=== PATIENT | female | born 1970 | race Caucasian/White ===

== ENCOUNTER 2016-12-05 11:47 | Emergency (ER) | payer OTHER ==
[2016-12-05 11:58] VITALS: BMI 21.9
[2016-12-05 12:00] VITALS: BP 111/77; PULSE 94; RESP 20; TEMP 98.4; O2SAT 98
[2016-12-05] MEDS ORDERED: Epinephrine /Lidocaine HCL 1:100,000/2% 30 ml INJ STA (12:31)
--- NOTE | 2016-12-05 12:51 | C.PDOC ---
History Of Present Illness 46 y/o female presents to ED with complains of abscess to left axilla for several days. Pain is a 8/10 increased with movement and is non radiating. Patient denies associated fever, chills, n/v/d or any other complaints at this time. Time Seen by Provider: 12/05/16 12:12 Chief Complaint (Nursing): Abnormal Skin Integrity History Per: Patient History/Exam Limitations: no limitations Onset/Duration Of Symptoms: Days Current Symptoms Are (Timing): Still Present Quality Of Symptoms: Painful Past Medical History Reviewed: Historical Data, Nursing Documentation, Vital Signs Vital Signs: Last Vital Signs Temp 98.4 F 12/05/16 11:58 Pulse 94 H 12/05/16 11:58 Resp 20 12/05/16 11:58 BP 111/77 12/05/16 11:58 Pulse Ox 98 12/05/16 12:51 Surgical History: Appendectomy Family History: States: Unknown Family Hx - Social History Hx Alcohol Use: No Hx Substance Use: No Review Of Systems Except As Marked, All Systems Reviewed And Found Negative. Constitutional: Negative for: Fever, Chills Gastrointestinal: Negative for: Nausea, Vomiting, Diarrhea Skin: Negative for: Rash Physical Exam - Physical Exam Appears: Non-toxic, No Acute Distress Skin: Normal Color, Warm Head: Atraumatic, Normacephalic Lymphatic: Other (Raised lesion to left axilla endurated with small fluctuance in the middle, Erythema and tender to touch) Chest: Symmetrical Gastrointestinal/Abdominal: Soft, No Tenderness, No Guarding, No Rebound Extremity: Normal ROM, Capillary Refill (<2 seconds) Neurological/Psych: Oriented x3, Normal Motor, Normal Sensation, Normal Reflexes ED Course And Treatment O2 Sat by Pulse Oximetry: 98 (RA) Pulse Ox Interpretation: Normal Medical Decision Making Medical Decision Making: Treatment option discussed with patient and agreed for procedure. Area was anesthetized with 2% lidocaine epi 3ml and small incision made, puss was removed Patient is feeling better and tolerated procedure Patient was discharged and asked to clean area and take Motrin for pain. Disposition Counseled Patient/Family Regarding: Studies Performed, Diagnosis - Disposition Disposition: HOME/ ROUTINE Disposition Time: 12:48 Condition: STABLE Instructions: Abscess (ED), Incision and Drainage (ED) Forms: General Discharge Instructions - POA Present On Arrival: None - Clinical Impression Clinical Impression: Abscess - Scribe Statement The provider has reviewed the documentation as recorded by the Scribe Rosy Carr All medical record entries made by the Deborahibe were at my direction and personally dictated by me. I have reviewed the chart and agree that the record accurately reflects my personal performance of the history, physical exam, medical decision making, and the department course for this patient. I have also personally directed, reviewed, and agree with the discharge instructions and disposition.
== END 2016-12-05 13:04 | disposition home or self-care (01) ==
LOC: C.ER 11:47
DX: L02.412 Cutaneous abscess of left axilla (principal)

== ENCOUNTER 2017-01-26 13:12 | Emergency (ER) | payer OTHER ==
[2017-01-26 13:12] VITALS: BMI 21.9
[2017-01-26 13:27] VITALS: TEMP 98.2
[2017-01-26] MEDS ORDERED: DiphenhydrAMINE 50 mg/ml Inj IM STA (13:42)
[2017-01-26] MEDS ORDERED: DiphenhydrAMINE 50 mg/ml Inj ONE (13:47)
--- NOTE | 2017-01-26 14:25 | C.PDOC ---
History Of Present Illness A 46 year old female, who denies any significant past medical history, presents to the emergency department for generalized itchy rash, which began 2 days ago. The patient denies any new contact with skin products, food, materials, or medications, she further denies any difficulties breathing, swelling, voice changes, fevers, or any other complaints at this time. Chief Complaint (Nursing): Allergic Reaction History Per: Patient History/Exam Limitations: no limitations Onset/Duration Of Symptoms: Days (x 2 days) Current Symptoms Are (Timing): Still Present Associated Symptoms: Skin Rash, Itching. denies: Swelling, Trouble Swallowing Severity: None Past Medical History Vital Signs: Last Vital Signs Temp 98.2 F 01/26/17 13:20 Pulse 68 01/26/17 15:08 Resp 18 01/26/17 15:08 BP 103/68 01/26/17 15:08 Pulse Ox 100 01/26/17 15:10 Surgical History: Appendectomy Family History: States: Unknown Family Hx - Social History Hx Alcohol Use: No Hx Substance Use: No Review Of Systems Except As Marked, All Systems Reviewed And Found Negative. Constitutional: Negative for: Fever ENT: Negative for: Mouth Swelling Respiratory: Negative for: Cough, Shortness of Breath, SOB with Excertion, Wheezing Skin: Negative for: Other (swelling ) Physical Exam - Physical Exam Appears: Well, Non-toxic, No Acute Distress Skin: Normal Color, Warm, Dry Head: Atraumatic, Normacephalic Eye(s): bilateral: Normal Inspection, PERRL, EOMI Nose: Normal Oral Mucosa: Moist Tongue: Normal Appearing, No Swelling Lips: Normal Appearing, No Swelling Teeth: Normal Dentition Gingiva: Normal Appearing Throat: Normal Neck: Normal Cardiovascular: Rhythm Regular Respiratory: Normal Breath Sounds Gastrointestinal/Abdominal: Normal Exam Back: Normal Inspection Extremity: Normal ROM, No Swelling ED Course And Treatment O2 Sat by Pulse Oximetry: 100 Medical Decision Making Medical Decision Making: Treatment Plan: -- Benadryl, Pepcid, Prednisone Progress Notes: On re-evaluation patient feels better, normal voice, no problems breathing, less pruritic. Patient will be c/ home with PMD/clinic follow up. Disposition - Disposition Referrals: [facility] at [facility] [Outside] Disposition: HOME/ ROUTINE Disposition Time: 15:08 Condition: IMPROVED Additional Instructions: Follow up in Clinic within 1-2 days. Return to Ed if feel worse. Prescriptions: DiphenhydrAMINE [Benadryl] 25 mg PO .Q4-6 H #30 cap Famotidine [Pepcid] 20 mg PO BID #20 tab predniSONE [predniSONE Tab] 2 tab PO DAILY #8 tab Instructions: Urticaria (ED) Forms: [facility] (Macedonian) Print Language: VENEZUELAN - Clinical Impression Clinical Impression: Urticaria - Scribe Statement The provider has reviewed the documentation as recorded by the Scribe Humera Milan All medical record entries made by the Deborahibe were at my direction and personally dictated by me. I have reviewed the chart and agree that the record accurately reflects my personal performance of the history, physical exam, medical decision making, and the department course for this patient. I have also personally directed, reviewed, and agree with the discharge instructions and disposition.
[2017-01-26 15:09] VITALS: BP 103/68; PULSE 68; RESP 18
[2017-01-26 15:10] VITALS: O2SAT 100
== END 2017-01-26 15:27 | disposition home or self-care (01) ==
LOC: C.ER 13:12
DX: L50.9 Urticaria, unspecified (principal)
CPT/HCPCS: 96372; 99284; J1200

== ENCOUNTER 2018-06-04 20:59 | Emergency (ER) | payer SELFPAY ==
[2018-06-04 20:59] VITALS: BMI 27.0
[2018-06-04 21:09] VITALS: BP 152/86; PULSE 66; RESP 20; TEMP 98.1; O2SAT 100
--- NOTE | 2018-06-04 22:11 | C.PDOC ---
History Of Present Illness 47 year old female presents to the ER for evaluation of right eye redness since yesterday. Patient states she has pain to the lower right eyelid and thinks she might have a stye. She also reports having a mild right sided headache and notes she has been unable to sleep, she requests to know if the symptoms are related. Patient does not use contacts but occasionally wears glasses. Patient has not tried any medication except for tylenol for the headache. Denies neck stiffness, neck pain, or change in vision. Patient presents a secondary complaint of right wrist pain for the past month after doing heavy lifting. She has been wearing a brace to support the wrist. Denies traumatic injury. Chief Complaint (Nursing): ENT Problem History Per: Patient History/Exam Limitations: no limitations Onset/Duration Of Symptoms: Days Current Symptoms Are (Timing): Still Present Preceeding Symptoms: None Associated Symptoms: denies: Blurred Vision, Other (Neck stiffness, Neck pain) Recent travel outside of the [place]: No Past Medical History Reviewed: Historical Data, Nursing Documentation, Vital Signs Vital Signs: Last Vital Signs Temp 98.1 F 06/04/18 21:00 Pulse 66 06/04/18 21:00 Resp 20 06/04/18 21:00 BP 152/86 H 06/04/18 21:00 Pulse Ox 100 06/04/18 21:00 Surgical History: Appendectomy Family History: States: Unknown Family Hx - Social History Hx Alcohol Use: Yes Hx Substance Use: No - Immunization History Hx Tetanus Toxoid Vaccination: No Hx Influenza Vaccination: No Hx Pneumococcal Vaccination: No Review Of Systems Constitutional: Negative for: Fever, Chills Eyes: Positive for: Pain (Right lower eyelid), Redness ENT: Negative for: Mouth Swelling Cardiovascular: Negative for: Chest Pain Respiratory: Negative for: Cough, Shortness of Breath Gastrointestinal: Negative for: Nausea, Vomiting, Diarrhea Genitourinary: Negative for: Dysuria, Hematuria Musculoskeletal: Positive for: Other (Right wrist pain). Negative for: Back Pain Skin: Negative for: Rash Neurological: Negative for: Weakness, Numbness, Dizziness Physical Exam - Physical Exam Appears: Well, Non-toxic, No Acute Distress Skin: Normal Color, Warm, No Rash Head: Atraumatic, Normacephalic Eye(s): bilateral: PERRL, EOMI, right: Other (Conjunctiva injection, excesssive tearing,no obvious stye, no pain with ROM, no photophobia), left: Normal Inspection Ear(s): Bilateral: Normal (No drainage) Nose: Normal Oral Mucosa: Moist Throat: Normal (No swelling or injection), Other (No exudates) Neck: Normal ROM, Supple Chest: Symmetrical Cardiovascular: Rhythm Regular Respiratory: No Accessory Muscle Use, Other (Normal inspiratory effort) Gastrointestinal/Abdominal: Soft, No Distention Back: Other (Ambulating with steady upright gait) Extremity: Normal ROM (x4), Capillary Refill (<2 seconds), Other (Right wrist pain with full extension. No snuffbox tenderness, no tinel sign.) Pulses: Left Radial: Normal, Right Radial: Normal Neurological/Psych: Oriented x3, Normal Speech, Normal Cognition, Normal Cranial Nerves (Grossly intact), Normal Motor, Normal Sensation ED Course And Treatment O2 Sat by Pulse Oximetry: 100 (Room air) Pulse Ox Interpretation: Normal - Other Rad Right wrist x-ray Interpretation: No acute fracture or dislocation Medical Decision Making Medical Decision Making: Right wrist x-ray ordered, results were negative. Patient discharged home with Rx and advised to follow up with primary for wrist pain. Disposition Counseled Patient/Family Regarding: Diagnosis, Need For Followup, Rx Given - Disposition Referrals: Kashif Kline MD [Staff Provider] - Disposition: HOME/ ROUTINE Disposition Time: 22:06 Condition: STABLE Prescriptions: Ofloxacin Ophth 0.3% [Ocuflox Ophth 0.3%] 1 - 2 drop OD QID 5 Days bottle Instructions: Conjunctivitis (Pinkeye) (DC) Forms: [facility] (Irish), General Discharge Instructions Print Language: KYRGYZ - Clinical Impression Clinical Impression: Conjunctivitis - PA / CUSTOMER SERVICES COORDINATOR / Resident Statement MD/DO has reviewed & agrees with the documentation as recorded. - Scribe Statement The provider has reviewed the documentation as recorded by the Scribmikhail Bruno All medical record entries made by the Deborahibmikhail were at my direction and personally dictated by me. I have reviewed the chart and agree that the record accurately reflects my personal performance of the history, physical exam, medical decision making, and the department course for this patient. I have also personally directed, reviewed, and agree with the discharge instructions and disposition.
--- NOTE | 2018-06-05 11:57 | RAD ---
Date of service: 06/04/2018 PROCEDURE: Right Wrist Radiographs. HISTORY: pain COMPARISON: None. FINDINGS: BONES: Normal. No fracture. JOINTS: Normal. No dislocation. SOFT TISSUES: Normal. OTHER FINDINGS: None. IMPRESSION: Normal right wrist radiographs.
== END 2018-06-04 22:23 | disposition home or self-care (01) ==
LOC: C.ER 20:59
DX: H10.9 Unspecified conjunctivitis (principal)

== ENCOUNTER 2018-07-14 17:06 | Emergency (ER) | payer SELFPAY ==
[2018-07-14 17:07] VITALS: BMI 27.0
[2018-07-14 17:15] VITALS: BP 130/84; PULSE 65; RESP 18; TEMP 98; O2SAT 100
[2018-07-14] MEDS ORDERED: DiphenhydrAMINE 50 mg/ml Inj IVP STA (18:06)
[2018-07-14] MEDS ORDERED: Sodium Chloride 0.9% 1,000 ML IV ONE (18:06)
[2018-07-14] MEDS ORDERED: DiphenhydrAMINE 50 mg/ml Inj ONE (18:19)
--- NOTE | 2018-07-14 18:57 | C.PDOC ---
History Of Present Illness 47 year old female presents to ED with complaint of left occipital headache that was more severe earlier today. Patient also complains of fatigue and lightheadedness. She admits to a history of headache, but this is time her headache was more severe than usual. She took Tylenol for her headache with improvement of pain. Patient denies visual changes, facial droop, slurred speech, extremity weakness, sensory changes, gait changes, neck pain or stiffness, and fever. Time Seen by Provider: 07/14/18 17:46 Chief Complaint (Nursing): Headache History Per: Patient History/Exam Limitations: no limitations Onset/Duration Of Symptoms: Hrs Current Symptoms Are (Timing): Better Severity: Mild Quality: "Pain" Associated Symptoms: Other (fatigue, lightheadedness). denies: Extremity Weakness Past Medical History Reviewed: Historical Data, Nursing Documentation, Vital Signs Vital Signs: Last Vital Signs Temp 98 F 07/14/18 17:09 Pulse 65 07/14/18 17:09 Resp 18 07/14/18 17:09 BP 130/84 07/14/18 17:09 Pulse Ox 100 07/14/18 17:09 - Medical History PMH: No Chronic Diseases Surgical History: Appendectomy Family History: States: No Known Family Hx - Social History Hx Alcohol Use: Yes Hx Substance Use: No - Immunization History Hx Tetanus Toxoid Vaccination: No Hx Influenza Vaccination: No Hx Pneumococcal Vaccination: No Review Of Systems Constitutional: Positive for: Other (fatigue). Negative for: Fever, Chills, Weakness Eyes: Negative for: Vision Change Cardiovascular: Positive for: Light Headedness. Negative for: Chest Pain, Palpitations Respiratory: Negative for: Cough, Shortness of Breath Gastrointestinal: Negative for: Nausea, Vomiting, Abdominal Pain, Diarrhea Genitourinary: Negative for: Dysuria, Hematuria Musculoskeletal: Negative for: Neck Pain (stiffness) Neurological: Positive for: Headache, Other (sensory changes). Negative for: Weakness, Numbness, Change in Speech, Confusion, Seizures, Altered Mental Status, Dizziness Physical Exam - Physical Exam Appears: Well, Non-toxic, Other (in mild discomfort) Skin: Normal Color, Warm, Dry Head: Atraumatic, Normacephalic Eye(s): bilateral: Normal Inspection (no nystagmus ), PERRL, EOMI Oral Mucosa: Moist Neck: Normal, Normal ROM, No Midline Cervical Tenderness, No Paracervical Tenderness, No Step Off Deformity, Supple, Other (no meningismus ) Chest: Symmetrical, No Deformity Cardiovascular: Rhythm Regular Respiratory: Normal Breath Sounds, No Rales, No Rhonchi, No Wheezing Gastrointestinal/Abdominal: Normal Exam, Bowel Sounds, Soft, No Tenderness Extremity: No Pedal Edema, No Calf Tenderness Extremity: Bilateral: Atraumatic, Normal Color And Temperature Pulses: Left Dorsalis Pedis: Normal, Right Dorsalis Pedis: Normal Neurological/Psych: Oriented x3, Normal Speech, Normal Cognition, Normal Cranial Nerves, No Cerebellar Signs, Normal Motor, Normal Sensation Gait: Steady ED Course And Treatment O2 Sat by Pulse Oximetry: 100 (RA) Pulse Ox Interpretation: Normal Progress Note: CT head ordered, and patient given IV NS bolus, IV Reglan and IV Benadryl. 18:40- Patient more anxious, possible dystonic rxn after reglan. Benadryl ordered. 19:10- Patient appears to have elopled from ED prior to CT head or reassessment. Disposition - Disposition Disposition: ELOPEMENT - ER ONLY Disposition Time: 19:10 Condition: STABLE Forms: [facility] (Turkish) - Clinical Impression Clinical Impression: Headache, Eloped from emergency department - Scribe Statement The provider has reviewed the documentation as recorded by the Scribe (Karyna Martinez) All medical record entries made by the Scribe were at my direction and personally dictated by me. I have reviewed the chart and agree that the record accurately reflects my personal performance of the history, physical exam, medical decision making, and the department course for this patient. I have also personally directed, reviewed, and agree with the discharge instructions and disposition.
== END 2018-07-14 19:10 | disposition left against medical advice (07) ==
LOC: C.ER 17:06
DX: R51 Headache (principal)
CPT/HCPCS: 81025; 82948; 96374; 99284; J1200; J2765; J7030

== ENCOUNTER 2018-08-10 10:15 | Outpatient (CLI) | payer SELFPAY | END 2018-08-10 10:16 | disposition home or self-care (01) | LOC: C.CTH 10:15 | DX: G44.52 New daily persistent headache (NDPH) (principal) ==

== ENCOUNTER 2018-10-06 22:01 | Emergency (ER) | payer SELFPAY ==
[2018-10-06 22:01] VITALS: BMI 27.0
[2018-10-06 22:19] VITALS: BP 133/84; PULSE 69; RESP 20; TEMP 98.5; O2SAT 100
--- NOTE | 2018-10-06 22:37 | C.PDOC ---
History Of Present Illness 48 year old female with no prior PMHx presents to the ED c/o chest pain. Patient is not able to describe or characterize the pain. Patient also reports "feeling weird" to the left side of her face. Patient denies fever, chills, visual changes, headache, neck pain, SOB, weakness, numbness. Time Seen by Provider: 10/06/18 22:25 Chief Complaint (Nursing): High Blood Pressure History Per: Patient History/Exam Limitations: no limitations Onset/Duration Of Symptoms: Days Current Symptoms Are (Timing): Still Present Associated Symptoms: Chest Pain Recent travel outside of the [place]: No Additional History Per: Patient Past Medical History Reviewed: Historical Data, Nursing Documentation, Vital Signs Vital Signs: Last Vital Signs Temp 98.5 F 10/06/18 22:16 Pulse 69 10/06/18 22:16 Resp 20 10/06/18 22:16 BP 133/84 10/06/18 22:16 Pulse Ox 100 10/06/18 22:16 Primary Care Provider: Darlene Alanis - Medical History PMH: No Chronic Diseases Surgical History: Appendectomy Family History: States: Unknown Family Hx - Social History Hx Alcohol Use: No Hx Substance Use: No - Immunization History Hx Tetanus Toxoid Vaccination: No Hx Influenza Vaccination: No Hx Pneumococcal Vaccination: No Review Of Systems Constitutional: Negative for: Fever, Chills Eyes: Negative for: Vision Change Cardiovascular: Positive for: Chest Pain. Negative for: Palpitations Respiratory: Negative for: Cough, Shortness of Breath Gastrointestinal: Negative for: Nausea, Vomiting, Abdominal Pain Musculoskeletal: Negative for: Neck Pain Skin: Negative for: Rash Neurological: Negative for: Weakness, Numbness, Headache, Dizziness Physical Exam - Physical Exam Appears: Non-toxic, No Acute Distress Skin: Normal Color, Warm, Dry Head: Atraumatic, Normacephalic Eye(s): bilateral: Normal Inspection, PERRL, EOMI Neck: Normal ROM, No Midline Cervical Tenderness, Supple Chest: Symmetrical Cardiovascular: Rhythm Regular Respiratory: Normal Breath Sounds, No Rales, No Rhonchi, No Wheezing Gastrointestinal/Abdominal: Soft, No Tenderness, No Distention Extremity: Normal ROM, No Tenderness, No Swelling Neurological/Psych: Oriented x3, Normal Speech, Normal Cognition, Other (non focal) Gait: Steady ED Course And Treatment ECG: Interpreted By Me, Viewed By Me ECG Rhythm: Sinus Rhythm ECG Interpretation: Normal, No Acute Changes Rate From EC (BPM) O2 Sat by Pulse Oximetry: 100 (ON RA) Pulse Ox Interpretation: Normal Against Medical Advice - AMA Patient Left Against Medical Advice: The patient declines admission to the hospital and wishes to leave the Emergency Department. This action is against my medical advice. This decision was made with informed refusal. The patient was told that admission to the hospital is necessary. Explanation of the reasons why were discussed. The risks of leaving were explained to the patient and include, but are not limited to, worsening of known or currently unknown conditions, permanent disability and from undiagnosed or untreated conditions. The patient has the capacity to make this informed decision and understands my explanation of the current medical problem and risks of leaving. The patient voluntarily accepts these risks and signed an AMA form documenting our conversation. The patient was given the opportunity to ask questions and reconsider. The patient was encouraged to return to the Emergency Department at any time for further care. Medical Decision Making Medical Decision Making: Patient refused any blood work or further testing will sign out AMA. Disposition - Disposition Disposition: AGAINST MEDICAL ADVICE Disposition Time: 22:34 Condition: UNKNOWN Additional Instructions: return to er with worsneing. Instructions: Chest Pain, Headache, Adult (DC) Forms: [employer] (Israeli) Print Language: THAI - Clinical Impression Clinical Impression: Left against medical advice, Chest pain, Headache - Scribe Statement The provider has reviewed the documentation as recorded by the Scribe [place] All medical record entries made by the Scribe were at my direction and personally dictated by me. I have reviewed the chart and agree that the record accurately reflects my personal performance of the history, physical exam, medical decision making, and the department course for this patient. I have also personally directed, reviewed, and agree with the discharge instructions and disposition.
--- NOTE | 2018-10-08 12:18 | CARD ---
APPROVED REPORT Date of service: 10/06/2018 EKG Measurement Heart [id number] <Conclusion> Normal sinus rhythm Low voltage QRS Septal infarct, age undetermined Abnormal ECG
== END 2018-10-06 22:51 | disposition left against medical advice (07) ==
LOC: C.ER 22:01
DX: R07.9 Chest pain, unspecified (principal); R51 Headache